=== PATIENT | male | born 1955 | race Caucasian/White ===

== ENCOUNTER → 2017-11-06 | Day surgery (SDC) | payer OTHER | LOC: MSO 07:40 | DX: Z12.11 Encounter for screening for malignant neoplasm of colon (principal); I10 Essential (primary) hypertension; R12 Heartburn; E11.9 Type 2 diabetes mellitus without complications; K57.90 Diverticulosis of intestine, part unspecified, without perforation or abscess without bleeding; Z79.84 Long term (current) use of oral hypoglycemic drugs | CPT/HCPCS: 00810; J2704; J3010; J7030 ==